=== PATIENT | female | born 1990 | race Caucasian/White ===

== ENCOUNTER 2018-10-27 05:40 | Inpatient (IN) ==
[2018-10-27] MEDS ORDERED: ONDANSETRON 4 MG/2 ML VIAL IV PRN (05:54)
[2018-10-27] MEDS ORDERED: BUTORPHANOL 2 MG/ML VIAL IV PRN (05:54)
[2018-10-27 06:31] LABS: Basophils % 0.3 % (0.0-0.8); Eosinophils # 0.1 10*3/uL (0.0-0.87); Eosinophils % 0.9 % (0.00-10.9); Hematocrit 31.7 VOL% (35.7-47.0); Hemoglobin 10.1 GM/DL (12.0-16.0); Immature Granulocytes % 0.7 %; Immature Granulocytes Absolute 0.07 #; Lymphocytes # 2.9 10*3/uL (1.4-4.0); Lymphocytes % 29.2 % (21.3-54.2); Mean Corpuscular HGB Conc 31.9 GM/DL (32-36); Mean Corpuscular Hemoglobin 27 PG (27-34); Mean Corpuscular Volume 83.2 FL (87-102); Monocytes # 0.6 10*3/uL (0.11-0.8); Monocytes % 5.6 % (1.7-12.7); Neutrophils # 6.4 10*3/uL (1.4-7.4); Neutrophils % 63.3 % (38.7-73.9); Platelet Count 359 T/CUMM (130-400); Red Blood Count 3.81 MC/CUMM (3.8-5.5); Red Cell Distribution Width 13.3 % (9.3-17.3); White Blood Count 10.1 T/CUMM (4-12)
[2018-10-27] MEDS: OXYTOCIN/LR 20 UNIT/1,000 ML BAG IV SCH (07:26)
[2018-10-27] MEDS: LACTATED RINGERS 1,000 ML IV SCH ×3 (08:55→17:05)
[2018-10-27] MEDS ORDERED: FAMOTIDINE 20 MG/2 ML VIAL IV ONE (08:56)
[2018-10-27] MEDS ORDERED: LACTATED RINGERS 1,000 ML IV ONE ×2 (08:56→23:39)
[2018-10-27] MEDS ORDERED: CITRIC ACID/SODIUM CITRATE 30 ML UDCUP PO ONE (08:56)
[2018-10-27] MEDS ORDERED: NALOXONE 0.4 MG/ML VIAL IV PRN (08:57)
[2018-10-27] MEDS ORDERED: PROMETHAZINE 25 MG/1 ML VIAL IM ONE (08:57)
[2018-10-27] MEDS ORDERED: diphenhydrAMINE 50 MG/1 ML VIAL IV PRN ×2 (08:57)
[2018-10-27] MEDS ORDERED: hydrOXYzine HCL 25 MG/1 ML VIAL IM PRN (08:57)
[2018-10-27] MEDS: fentaNYL 2 MCG/ROPIV 0.2% EPID 100 ML EPIDURAL SCH ×2 (09:45→19:55)
[2018-10-27] MEDS: ePHEDrine 50 MG/ML AMP IV PRN ×2 (10:36→10:42)
[2018-10-27 11:33] LABS: Apearance,Urine CLEAR (Clear); Bacteria,Urine Occasional /HPF (Few); Bilirubin,Urine Negative (Negative); Blood, Urine Negative (Negative); Glucose,Urine (UA) Negative (Negative); Ketones,Urine 5 mg/dL (Negative); Mucus,Urine Occasional /LPF (Occasional); Nitrite,Urine Negative (Negative); Protein,Urine Negative; RBC,Urine 1 /HPF (0-4); Squamous Epithelial Cell,Urine Occasional /HPF (0-10); Urine Color Yellow (Yellow); Urine Specific Gravity 1.012 (1.001-1.035); Urine Urobilinogen < 2.0 EU/DL (0.2-1.0); WBC,Urine 2 /HPF (0-6)
[2018-10-27] MEDS ORDERED: miSOPROStol 200 MCG TABLET ONE (19:11)
[2018-10-27] MEDS ORDERED: METHYLERGONOVINE 0.2 MG/1 ML AMP ONE (19:11)
[2018-10-27] MEDS ORDERED: CARBOPROST TROMETHAMINE 250 MCG/ML AMP IM ONE (19:11)
[2018-10-27] MEDS ORDERED: TRANEXAMIC ACID 1,000 MG/10 ML VIAL ONE (19:11)
[2018-10-27] MEDS ORDERED: ceFAZolin 2,000 MG in PREMIX 1 EACH IV STA (21:42)
[2018-10-27] MEDS ORDERED: METHYLERGONOVINE 0.2 MG/1 ML AMP IM ONE (22:45)
[2018-10-27] MEDS ORDERED: RHO(D) IMMUNE GLOBULIN 300 MCG SYRINGE IM ONE (23:06)
[2018-10-27] MEDS ORDERED: SIMETHICONE CHEW 80 MG TABLET PO PRN (23:06)
[2018-10-27] MEDS ORDERED: ACETAMINOPHEN 325 MG TABLET PO PRN (23:06)
[2018-10-27] MEDS ORDERED: oxyCODONE/ACETAMINOPHEN 5-325 MG TABLET PO PRN (23:09)
[2018-10-27] MEDS ORDERED: PROMETHAZINE 25 MG/1 ML VIAL ONE (23:38)
[2018-10-27] MEDS ORDERED: fentaNYL 100 MCG/2 ML VIAL ONE (23:38)
[2018-10-27] MEDS ORDERED: LIDOCAINE MPF 2% /EPI 20 ML VIAL ONE (23:39)
[2018-10-27] MEDS ORDERED: PHENYLEPHRINE 1 MG/10 ML SYRINGE IV ONE (23:39)
[2018-10-27] MEDS ORDERED: ONDANSETRON 4 MG/2 ML VIAL ONE (23:39)
[2018-10-27] MEDS ORDERED: SODIUM BICARBONATE 2.4 MEQ/5 ML VIAL ONE (23:39)
[2018-10-28] MEDS ORDERED: PROMETHAZINE 25 MG/1 ML VIAL IM ONE (00:30)
[2018-10-28] MEDS: HYDROmorphone 2 MG/1 ML VIAL IV PRN ×3 (00:43→06:56)
[2018-10-28] MEDS: OXYTOCIN/LR 20 UNIT/1,000 ML BAG IV SCH (00:53)
[2018-10-28 05:56] LABS: Basophils % 0.2 % (0.0-0.8); Hematocrit 34.4 VOL% (35.7-47.0); Hemoglobin 10.6 GM/DL (12.0-16.0); Immature Granulocytes % 0.8 %; Immature Granulocytes Absolute 0.16 #; Lymphocytes % 10.4 % (21.3-54.2); Mean Corpuscular HGB Conc 30.8 GM/DL (32-36); Mean Corpuscular Hemoglobin 26 PG (27-34); Mean Corpuscular Volume 85.1 FL (87-102); Mean Platelet Volume 10.6 FL (9.6-12.0); Monocytes # 1.3 10*3/uL (0.11-0.8); Neutrophils # 15.6 10*3/uL (1.4-7.4); Neutrophils % 81.6 % (38.7-73.9); Platelet Count 343 T/CUMM (130-400); Red Blood Count 4.04 MC/CUMM (3.8-5.5); Red Cell Distribution Width 13.2 % (9.3-17.3); White Blood Count 19.1 T/CUMM (4-12)
[2018-10-28] MEDS: ceFAZolin 1,000 MG in SYRINGE 1 EACH IV SCH ×2 (06:37→15:54)
[2018-10-28] MEDS: IBUPROFEN 800 MG TABLET PO PRN ×2 (07:01→18:04)
[2018-10-28] MEDS: FERROUS SULFATE 325 MG TABLET PO SCH (08:51)
[2018-10-28] MEDS: DOCUSATE SODIUM 100 MG CAPSULE PO SCH ×2 (08:51→20:25)
[2018-10-28] MEDS: MULTIVITAMIN (PRENATAL) TABLET PO SCH (08:51)
[2018-10-28] MEDS: MAGNESIUM HYDROXIDE SUSP 30 ML UDCUP PO PRN ×2 (08:51→20:25)
[2018-10-28] MEDS: oxyCODONE/ACETAMINOPHEN 5-325 MG TABLET PO PRN ×2 (12:21→20:26)
[2018-10-29] MEDS: oxyCODONE/ACETAMINOPHEN 5-325 MG TABLET PO PRN ×3 (04:25→18:20)
[2018-10-29] MEDS: IBUPROFEN 800 MG TABLET PO PRN ×2 (04:25→18:20)
[2018-10-29] MEDS: DOCUSATE SODIUM 100 MG CAPSULE PO SCH ×2 (08:54→21:04)
[2018-10-29] MEDS: FERROUS SULFATE 325 MG TABLET PO SCH (08:54)
[2018-10-29] MEDS: MULTIVITAMIN (PRENATAL) TABLET PO SCH (08:54)
[2018-10-29] MEDS: MAGNESIUM HYDROXIDE SUSP 30 ML UDCUP PO PRN (08:54)
[2018-10-29] MEDS: LACTATED RINGERS 1,000 ML IV SCH ×8 (22:09→22:13)
[2018-10-29] MEDS: OXYTOCIN/LR 20 UNIT/1,000 ML BAG IV SCH ×2 (22:11→22:13)
[2018-10-30] MEDS: IBUPROFEN 800 MG TABLET PO PRN (04:30)
[2018-10-30] MEDS: oxyCODONE/ACETAMINOPHEN 5-325 MG TABLET PO PRN (04:30)
[2018-10-30] MEDS: LACTATED RINGERS 1,000 ML IV SCH ×2 (04:51)
[2018-10-30 07:43] VITALS: BP 132/68
[2018-10-30] MEDS: MULTIVITAMIN (PRENATAL) TABLET PO SCH (09:20)
[2018-10-30] MEDS: DOCUSATE SODIUM 100 MG CAPSULE PO SCH (09:20)
[2018-10-30] MEDS: FERROUS SULFATE 325 MG TABLET PO SCH (09:20)
== END 2018-10-30 13:10 | disposition home or self-care (01) | DRG 788 ==
LOC: N.LD → OBSVTOIN 05:40 → N.OB 10-28 01:55
PROVIDERS: ADMIT Obstetrics & Gynecology; ATTEND Obstetrics & Gynecology
PROC: LDCSECT (ICD-10-PCS; 2018-10-27 21:50)